=== PATIENT | male | born 1985 | race Caucasian/White ===

== ENCOUNTER → 2023-01-17 | Outpatient (CLI) | payer OTHER ==
--- NOTE | 2023-01-17 10:32 | US ---
EXAMINATION TYPE: US venous doppler duplex LE DATE OF EXAM: 01/17/2023 10:13 AM COMPARISON: NONE CLINICAL INDICATION: Male, 37 years old with history of R60.0 LOCALIZED EDEMA BLE; edema SIDE PERFORMED: Bilateral TECHNIQUE: The lower extremity deep venous system is examined utilizing real time linear array sonog aylin with graded compression, doppler sonography and color-flow sonography. VESSELS IMAGED: Common Femoral Vein Deep Femoral Vein Greater Saphenous Vein * Femoral Vein Popliteal Vein Small Saphenous Vein * Proximal Calf Veins (* superficial vessels) Right Leg: Negative for DVT Left Leg: Negative for DVT IMPRESSION: Grayscale, color doppler, spectral doppler imaging performed of the deep veins of the lo wer extremities. There is normal flow, compressibility, vascular waveforms.
== END | disposition home or self-care (01) ==
LOC: RADUSWWP 09:38
PROVIDERS: ATTEND Family Medicine
DX: R60.0 Localized edema (principal)
CPT/HCPCS: 93970

== ENCOUNTER → 2023-04-09 | Outpatient (CLI) | payer OTHER ==
--- NOTE | 2023-04-09 14:26 | CA ---
Transthoracic Echo Report Name: Mikey Barrera Age: 37 Gender: M : 1985 Exam Date: 04/09/2023 08:45 Exam Location: [facility] Ht (in): 73 Wt (lb): 330 Ordering Physician: Audie Chong DO Attending/Referring Phys: Darya Michel [facility] Field Auditor Samantha Yusuf RDCS Procedure CPT: Indications: R01.1 Cardiac Hx: Technical Quality: Fair Contrast 1: Total Dose (mL): Contrast 2: Total Dose (mL): MEASUREMENTS (Male / Female) Normal Values 2D ECHO LV Diastolic Diameter PLAX 4.1 cm 4.2 - 5.9 / 3.9 - 5.3 cm LV Systolic Diameter PLAX 2.7 cm IVS Diastolic Thickness 1.1 cm 0.6 - 1.0 / 0.6 - 0.9 cm LVPW Diastolic Thickness 1.1 cm 0.6 - 1.0 / 0.6 - 0.9 cm LV Relative Wall Thickness 0.5 RV Internal Dim ED PLAX 3.7 cm LA Systolic Diameter LX 3.8 cm 3.0 - 4.0 / 2.7 - 3.8 cm LV Diastolic Volume MOD 4C 116.5 cm??? LV Systolic Volume MOD 4C 49.9 cm??? LV Ejection Fraction MOD 4C 57.2 % LV Cardiac Index MOD 4C 1687.3 cm???/min???m??? LV Diastolic Length 4C 9.5 cm LV Systolic Length 4C 7.8 cm LV Diastolic Volume MOD 2C 131.2 cm??? LV Systolic Volume MOD 2C 69.8 cm??? LV Ejection Fraction MOD 2C 46.8 % LV Cardiac Index MOD 2C 1554.6 cm???/min???m??? LV Diastolic Length 2C 9.0 cm LV Systolic Length 2C 7.5 cm LA Volume 52.1 cm??? 18 - 58 / 22 - 52 cm??? M-MODE Aortic Root Diameter MM 3.6 cm MV E Point Septal Separation 0.4 cm AV Cusp Separation MM 2.6 cm DOPPLER AV Peak Velocity 121.5 cm/s AV Peak Gradient 5.9 mmHg MV Area PHT 3.3 cm??? Mitral E Point Velocity 89.7 cm/s Mitral A Point Velocity 64.9 cm/s Mitral E to A Ratio 1.4 MV Deceleration Time 231.8 ms FINDINGS Left Ventricle Left ventricular ejection fraction is estimated at 55-60 %. Left ventricular cavity size normal. Mildly increased septal wall thickness. No obvious regional wall motion abnormalities. Diastolic function could not be assessed due to lack of tissue Doppler. Right Ventricle Mild right ventricular dilatation. Unable to estimate the right ventricular systolic pressure. Right Atrium Normal right atrial size. Left Atrium Normal left atrial size. Mitral Valve Structurally normal mitral valve. No mitral stenosis, or regurgitation. Aortic Valve Trileaflet aortic valve. No aortic valve stenosis or regurgitation. Tricuspid Valve Structurally normal tricuspid valve. No tricuspid stenosis, regurgitation or prolapse. Pulmonic Valve Pulmonic valve not well visualized. Pericardium Normal pericardium. No pericardial effusion. Aorta Normal size aortic root and proximal ascending aorta. CONCLUSIONS Left ventricular ejection fraction is estimated at 55-60 %. Left ventricular cavity size normal. Mildly increased septal wall thickness. No obvious regional wall motion abnormalities. No significant valvular dysfunction No prior echo to compare in synapse database Previewed by: Rayray Harden MD Dr Anubhav Jain (Electronically Signed) Final Date: 09 April 2023 14:25
== END | disposition home or self-care (01) ==
LOC: RADECHMAIN 08:22
PROVIDERS: ATTEND Family Medicine
DX: R01.1 Cardiac murmur, unspecified (principal)
CPT/HCPCS: 93306

== ENCOUNTER → 2024-06-19 | Outpatient (CLI) | payer OTHER ==
--- NOTE | 2024-06-23 08:33 | US ---
EXAMINATION TYPE: US thyroid st tissue head/neck DATE OF EXAM: 06/19/2024 COMPARISON: NONE CLINICAL INDICATION: Male, 38 years old with history of R59.0 LOCALIZED ENLARGED LYMPH NODES; Patient states doctor felt left neck lymph nodes. TECHNIQUE: Multiple images taken of left neck at area of concern. FINDINGS: Left neck scanned, no evidence of lymphadenopathy IMPRESSION: 1. No discrete solid or cystic areas are evident within the area of concern. [facility], , 06/23/2024 8:30 AM
== END | disposition home or self-care (01) ==
LOC: RADUSWWP 07:22
PROVIDERS: ATTEND Family Medicine
DX: R59.0 Localized enlarged lymph nodes (principal)
CPT/HCPCS: 76536